=== PATIENT | female | born 1960 | race Caucasian/White ===

== ENCOUNTER → 2018-02-26 | Outpatient (CLI) | payer OTHER ==
[~2018-02-26] MED LIST: CELEXA20 MG PO; COZAAR50 MG PO; CRESTOR5 MG PO; NORVASC10 MG PO; NUVIGIL200 MG PO; PLAQUENIL200 MG PO; WELCHOL625 MG PO; ZYRTEC10 M3 PO
== END | disposition home or self-care (01) ==
LOC: CDC 15:00
DX: Z01.810 Encounter for preprocedural cardiovascular examination (principal)
CPT/HCPCS: 93000

== ENCOUNTER 2018-03-06 13:05 | Day surgery (SDC) | payer OTHER ==
[~2018-03-06] VITALS: Ht 167.6 cm; Wt 87.5 kg
[2018-03-06 13:44] VITALS: BP 111/54
[2018-03-06 16:40] VITALS: BP 141/70
[2018-03-06 17:36] VITALS: BP 138/70
== END 2018-03-06 17:39 | disposition home or self-care (01) ==
LOC: SDC
PROC: 0SPG04Z Removal of Internal Fixation Device from Left Ankle Joint, Open Approach (ICD-10-PCS; principal; 2018-03-06)
DX: T84.84XA Pain due to internal orthopedic prosthetic devices, implants and grafts, initial encounter (principal); Y79.3 Surgical instruments, materials and orthopedic devices (including sutures) associated with adverse incidents; R26.2 Difficulty in walking, not elsewhere classified; I10 Essential (primary) hypertension; M06.9 Rheumatoid arthritis, unspecified; J45.909 Unspecified asthma, uncomplicated; E78.00 Pure hypercholesterolemia, unspecified; E03.9 Hypothyroidism, unspecified; G47.30 Sleep apnea, unspecified
CPT/HCPCS: 73600; 76000; J0131; J0330; J0690; J1170; J2250; J2405; J3010; S0020